=== PATIENT | male | born 1975 | race Caucasian/White ===

== ENCOUNTER 2019-06-07 06:34 | Emergency (ER) | payer MEDICAID ==
[~2019-06-07] VITALS: Ht 170.2 cm; Wt 66.1 kg
[~2019-06-07 06:34] MED LIST: FAMO-96 PO
[2019-06-07 06:37] VITALS: RESP 16; Ht 170.2 cm; Wt 66.1 kg
[2019-06-07] MEDS ORDERED: FAMOTIDINE 20 MG INJ IV STA (07:29)
[2019-06-07] MEDS ORDERED: KETOROLAC 30 MG INJ IV STA (07:29)
[2019-06-07] MEDS ORDERED: BELLADONNA/PHENOBARBITAL TAB PO STA (07:29)
[2019-06-07] MEDS ORDERED: LIDOCAINE/MYLANTA 40 ML BTL PO STA (07:29)
[2019-06-07] MEDS ORDERED: SOD CHLORIDE 0.9% 1,000 ML IV STA (07:29)
[2019-06-07 10:26] VITALS: BP 127/74; PULSE 61
== END 2019-06-07 10:27 | disposition home or self-care (01) ==
LOC: FTE 06:34
DX: R10.13 Epigastric pain (principal); F17.210 Nicotine dependence, cigarettes, uncomplicated
CPT/HCPCS: 36415; 74176; 76705; 76775; 80053; 81003; 83690; 85025; 96361; 96374; 96375; J1885; J7030; Z7502; Z7610